=== PATIENT | female | born 2000 | race Hispanic/Latino ===

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

== ENCOUNTER 2021-01-03 20:04 | Emergency (ER) | payer SELFPAY | END 2021-01-03 21:03 | disposition left against medical advice (07) | LOC: ED 20:04 | DX: Z00.8 Encounter for other general examination (principal); Z53.21 Procedure and treatment not carried out due to patient leaving prior to being seen by health care provider ==

== ENCOUNTER 2021-01-03 23:19 | Emergency (ER) | payer SELFPAY ==
--- NOTE | 2021-01-04 02:09 | XRay Report ---
LEFT HAND RADIOGRAPH, 3 VIEWS INDICATION / CLINICAL INFORMATION: Left hand injury COMPARISON: None available. FINDINGS: BONES / JOINT(S): No acute displaced fracture or subluxation. No significant arthritis. SOFT TISSUES: Soft tissue swelling of the digits with overlying bandage material in place. No radiopa que foreign object identified. ADDITIONAL FINDINGS: None. Signer Name: Radha Ellison MD Signed: 01/04/2021 2:05 AM Workstation Name: [id number]
[2021-01-04] MEDS ORDERED: LIDOCAINE-MPF (1%) 10 MG/1 ML VIAL 5 ML INFILTRATI ONE (02:20)
[2021-01-04] MEDS ORDERED: TETANUS,DIPH,PERTUSS(ACELL) VACCINE 0.5 ML SYRINGE IM ONE (02:20)
[2021-01-04] MEDS ORDERED: BUPIVACAINE/PF (0.5%) 5 MG/1 ML 10 ML VIAL INFILTRATI ONE (02:20)
--- NOTE | 2021-01-04 02:39 | Emergency Department Report ---
- General Chief Complaint: Wound/Laceration Stated Complaint: LT HAND INJURY Time Seen by Provider: 01/04/21 02:01 Source: patient Mode of arrival: Stretcher Limitations: No Limitations - History of Present Illness Initial Comments: Patient is a 20-year-old female presents emergency room with complaints of a left hand injury that occurred prior to arrival. Patient states that she got angry and was using a broom to had a TV. She states that the broom slipped and then she hit the TV with her hand and it broke and the TV glass cut her hand. She states that she was not trying to harm herself and denies any SI or HI but just got angry. She is still able to move the hand. She denies any numbness or weakness. She states initially there was bleeding but has since improved. She is unsure of her last tetanus immunization. No past medical history. No allergies medications. She denies any daily medications. She is currently on her menstrual cycle. - Related Data Previous Rx's Medication Instructions Recorded Last Taken Type buPROPion [Wellbutrin] 100 mg PO TID #90 tablet 03/07/20 Unknown Rx hydrOXYzine PAMOATE [Vistaril] 25 mg PO Q6HR PRN #30 capsule 03/07/20 Unknown Rx Neomycin/Bacitracin/Polymyxinb 1 applicatio TP BID #14 oint...g. 01/04/21 Unknown Rx [Triple Antibiotic Ointment] Allergies Allergy/AdvReac Type Severity Reaction Status Date / Time No Known Allergies Allergy Unverified 11/27/13 19:26 ED Review of Systems ROS: Stated complaint: LT HAND INJURY Other details as noted in HPI Comment: All other systems reviewed and negative ED Past Medical Hx - Past Medical History Previous Medical History?: No Hx Diabetes: No Hx Renal Disease: No Hx Sickle Cell Disease: No Hx Seizures: No Hx Asthma: No Hx COPD: No Hx HIV: No - Surgical History Past Surgical History?: No - Social History Smoking Status: Never Smoker Substance Use Type: None - Medications Home Medications: Home Medications Medication Instructions Recorded Confirmed Last Taken Type buPROPion [Wellbutrin] 100 mg PO TID #90 tablet 03/07/20 Unknown Rx hydrOXYzine PAMOATE [Vistaril] 25 mg PO Q6HR PRN #30 capsule 03/07/20 Unknown Rx Neomycin/Bacitracin/Polymyxinb 1 applicatio TP BID #14 oint...g. 01/04/21 Unknown Rx [Triple Antibiotic Ointment] ED Physical Exam - General Limitations: No Limitations General appearance: alert, in no apparent distress - Head Head exam: Present: atraumatic, normocephalic - Eye Eye exam: Present: normal appearance - ENT ENT exam: Present: mucous membranes moist - Respiratory Respiratory exam: Absent: respiratory distress, accessory muscle use - Extremities Exam Extremities exam: Present: full ROM (no foreign body, no bony ttp of the left wrist, hand, digits, neurovascularly intact, no deformity), other (very superficial lacerations present to the left index,ring, and pinky finger, do not need repair, all are less than 1 cm and only involve skin layers, 3 cm very irregular shaped laceration to the dorsal left middle finger there is subcutaneous fat involvement, no muscle or tendon involve) - Neurological Exam Neurological exam: Present: alert, oriented X3 - Psychiatric Psychiatric exam: Present: normal affect, normal mood - Skin Skin exam: Present: warm, dry ED Course Vital Signs 01/04/21 01/04/21 01:03 04:13 Temperature 98.4 F 98.2 F Pulse Rate 65 68 Respiratory 18 18 Rate Blood Pressure 120/86 Blood Pressure 111/62 [Left] O2 Sat by Pulse 99 100 Oximetry - Laceration /Wound Repair Left Dorsal Finger Wound Location: upper extremity (left dorsal ring finger) Wound Length (cm): 3 Wound's Depth, Shape: irregular Wound Explored: clean Irrigated w/ Saline (ccs): 200 Betadine Prep?: Yes Anesthesia: 1% Lidocaine, 0.5% Sensorcaine Volume Anesthetic (ccs): 6 (50/50 mixture) Wound Debrided: extensive Wound Repaired With: sutures Suture Size/Type: 4:0, proline Number of Sutures: 9 Layer Closure?: No Sterile Dressing Applied?: Yes Progress: Verbal consent obtained, discussed risk and alternative treatments Wound irrigated with saline and thoroughly scrubbed with Betadine, laceration is very irregular and complex, no muscle or tendon involvement, no foreign body, digital block performed and make sure to aspirate to ensure there was no arterial infiltration, 6 cc of 50-50 mixture of 0.5% bupivacaine without epi and 1% lidocaine without epi, good anesthesia achieved, 4-0 Prolene used for skin closure, 9 sutures placed, patient tolerated well, no complications, bleeding controlled, sterile dressing applied by nurse ED Medical Decision Making - Radiology Data Radiology results: report reviewed Ordering Physician: DANG GUY MD Date of Service: 01/04/21 Procedure(s): XR hand 3+V LT Accession Number(s): [id number] cc: DANG GUY MD Fluoro Time In Minutes: LEFT HAND RADIOGRAPH, 3 VIEWS INDICATION / CLINICAL INFORMATION: Left hand injury COMPARISON: None available. FINDINGS: BONES / JOINT(S): No acute displaced fracture or subluxation. No significant arthritis. SOFT TISSUES: Soft tissue swelling of the digits with overlying bandage material in place. No radiopaque foreign object identified. ADDITIONAL FINDINGS: None. Signer Name: Radha Ellison MD Signed: 01/04/2021 2:05 AM Workstation Name: [id number] Transcribed By: [facility] Dictated By: Radha Ellison MD Electronically Authenticated By: Radha Ellison MD Signed Date/Time: 01/04/21204 DD/ 3 TD/TT: - Medical Decision Making Patient is a 20-year-old female presents emergency room with complaints of a left hand injury that occurred prior to arrival. Patient states that she got angry and was using a broom to had a TV. She states that the broom slipped and then she hit the TV with her hand and it broke and the TV glass cut her hand. She states that she was not trying to harm herself and denies any SI or HI but just got angry. She is still able to move the hand. She denies any numbness or weakness. She states initially there was bleeding but has since improved. She is unsure of her last tetanus immunization. No past medical history. No allergies medications. She denies any daily medications. She is currently on her menstrual cycle. Vitals are normal. On exam:very superficial lacerations present to the left index,ring, and pinky finger, do not need repair, all are less than 1 cm and only involve skin layers, 3 cm very irregular shaped laceration to the dorsal left middle finger there is subcutaneous fat involvement, no muscle or tendon involve, no foreign body, no bony ttp of the left wrist, hand, digits, neurovascularly intact, no deformity. X-ray left hand: BONES / JOINT(S): No acute displaced fracture or subluxation. No significant arthritis. SOFT TISSUES: Soft tissue swelling of the digits with overlying bandage material in place. No radiopaque foreign object identified. ADDITIONAL FINDINGS: None. Laceration repaired per procedure note. Patient given prescription for triple antibiotic ointment. Advised patient Please use medication as prescribed. Please keep area clean, dry, covered. Wash with antibacterial soap and water and pat dry. No hot tub, no pool, no soaking in water. Showering is fine. Follow-up with a primary care doctor. Sutures need to be removed in 10 to 14 days. Return to emergency room for any new or worsening symptoms. Critical care attestation.: If time is entered above; I have spent that time in minutes in the direct care of this critically ill patient, excluding procedure time. ED Disposition Clinical Impression: Superficial laceration of finger Laceration of left middle finger Qualifiers: Encounter type: initial encounter Damage to nail status: without damage Foreign body presence: without foreign body Qualified Code(s): S61.213A - Laceration without foreign body of left middle finger without damage to nail, initial encounter Disposition: DC- TO HOME OR SELFCARE Is pt being admited?: No Does the pt Need Aspirin: No Condition: Stable Instructions: Laceration Care, Adult, Sutures, Josette, or Adhesive Wound Closure, [id number] Additional Instructions: Please use medication as prescribed. Please keep area clean, dry, covered. Wash with antibacterial soap and water and pat dry. No hot tub, no pool, no soaking in water. Showering is fine. Follow-up with a primary care doctor. Sutures need to be removed in 10 to 14 days. Return to emergency room for any new or worsening symptoms. Prescriptions: Neomycin/Bacitracin/Polymyxinb [Triple Antibiotic Ointment] 1 applicatio TP BID #14 oint...g. Referrals: PRIMARY CARE, [Primary Care Provider] - 3-5 Days Time of Disposition: 03:41 Print Language: THAI
[2021-01-04 04:16] VITALS: BP 111/62
== END 2021-01-04 04:17 | disposition home or self-care (01) ==
LOC: ED 23:19
DX: S61.213A Laceration without foreign body of left middle finger without damage to nail, initial encounter (principal); Z79.899 Other long term (current) drug therapy; W25.XXXA Contact with sharp glass, initial encounter; Y93.89 Activity, other specified; Y92.89 Other specified places as the place of occurrence of the external cause; Y99.8 Other external cause status
CPT/HCPCS: 90471; 90715

== ENCOUNTER 2021-01-20 06:33 | Emergency (ER) | payer SELFPAY ==
--- NOTE | 2021-01-20 07:56 | Emergency Department Report ---
ED General Adult HPI - General Chief complaint: Laceration/Recheck/Suture Stated complaint: SUTURE REMOVAL Time Seen by Provider: 01/20/21 07:55 Source: patient Mode of arrival: Ambulatory Limitations: No Limitations - History of Present Illness Initial comments: 20-year-old female patient presents to emergency department for suture removal. She was evaluated in this emergency department 16 days ago for an accidental laceration to her left third finger. Please see ER documentation from 01/04/21 for additional details. There have been no complications since the sutures were placed. Patient has no additional complaints. - Related Data Previous Rx's Medication Instructions Recorded Last Taken Type buPROPion [Wellbutrin] 100 mg PO TID #90 tablet 03/07/20 Unknown Rx hydrOXYzine PAMOATE [Vistaril] 25 mg PO Q6HR PRN #30 capsule 03/07/20 Unknown Rx Neomycin/Bacitracin/Polymyxinb 1 applicatio TP BID #14 oint...g. 01/04/21 Unknown Rx [Triple Antibiotic Ointment] Allergies Allergy/AdvReac Type Severity Reaction Status Date / Time No Known Allergies Allergy Unverified 11/27/13 19:26 ED Review of Systems ROS: Stated complaint: SUTURE REMOVAL Other details as noted in HPI Other: GENERAL: Negative for fever. CARDIOVASCULAR: Negative for chest pain. PULMONARY: Negative for shortness of breath. GASTROINTESTINAL: Negative for abdominal pain. MUSCULOSKELETAL: Negative for back pain. NEUROLOGICAL: Negative for headache. INTEGUMENTARY: Positive for laceration. ED Past Medical Hx - Past Medical History Hx Diabetes: No Hx Renal Disease: No Hx Sickle Cell Disease: No Hx Seizures: No Hx Asthma: No Hx COPD: No Hx HIV: No - Social History Smoking Status: Never Smoker - Medications Home Medications: Home Medications Medication Instructions Recorded Confirmed Last Taken Type buPROPion [Wellbutrin] 100 mg PO TID #90 tablet 03/07/20 Unknown Rx hydrOXYzine PAMOATE [Vistaril] 25 mg PO Q6HR PRN #30 capsule 03/07/20 Unknown Rx Neomycin/Bacitracin/Polymyxinb 1 applicatio TP BID #14 oint...g. 01/04/21 Unknown Rx [Triple Antibiotic Ointment] ED Physical Exam - General Limitations: No Limitations - Other Other exam information: General: Awake, appropriately interactive, no acute distress. Neck: Supple. Full range of motion intact. Cardiovascular: Normal peripheral perfusion. Pulmonary: No respiratory distress. Patient is speaking normally without use of accessory muscles. Skin: There is a 3 cm well-healed laceration noted to the dorsal aspect of the left third digit with [address] No evidence of wound dehiscence or secondary infection. Neurological: No facial asymmetry. Speech is clear. Follows commands. Patient is alert and oriented. Musculoskeletal: Moves all four extremities spontaneously with normal range of motion. Psych: Cooperative. Appropriate mood and affect. ED Course Vital Signs 01/20/21 06:36 Temperature 98.3 F Pulse Rate 83 Respiratory 16 Rate Blood Pressure 116/64 O2 Sat by Pulse 98 Oximetry - Procedure Description Procedures done: Verbal consent was obtained from the patient. Nine Prolene s utures were removed from the left third digit using forceps and scissors. Patient tolerated procedure well without complications. Estimated blood loss 0 mL. ED Medical Decision Making - Medical Decision Making Suture removal performed without complications. Patient discharged home in stable condition to continue wound care. Patient expressed understanding is agreeable to plan of care. Strict return precautions provided. BILLING/CODING: This patient encounter does not represent a certified medical emergency. Critical care attestation.: If time is entered above; I have spent that time in minutes in the direct care of this critically ill patient, excluding procedure time. ED Disposition Clinical Impression: Encounter for removal of sutures Disposition: DC-01 TO HOME OR SELFCARE Is pt being admited?: No Does the pt Need Aspirin: No Condition: Stable Instructions: Wound Closure Removal, Care After Additional Instructions: Apply Vaseline to the affected area daily. Apply sunscreen to the affected area daily. Follow-up with your primary care provider as needed. Return to the emergency department immediately for new or worsening symptoms. Referrals: [facility] [Provider Group] - 3-5 Days Forms: Work/School Release Form(ED) Time of Disposition: 08:00
== END 2021-01-20 08:10 | disposition home or self-care (01) ==
LOC: ED 06:33